=== PATIENT | female | born 1975 | race Caucasian/White ===

== ENCOUNTER 2020-04-01 18:29 | Emergency (ER) | payer MEDICAID, OTHER ==
[~2020-04-01] VITALS: Ht 175.3 cm; Wt 77.0 kg
[2020-04-01] MEDS ORDERED: SODIUM CHLORIDE FLUSH 10ML SYR IVF ONE (19:30)
[2020-04-01 19:42] LABS: BASOPHILS # (AUTO) 0.04 x10^3/uL (0-0.1); BASOPHILS % (AUTO) 0 % (0-1); EOSINOPHILS # (AUTO) 0.58 x10^3/uL (0-0.4); EOSINOPHILS % (AUTO) 6 % (1-7); LYMPHOCYTES # (AUTO) 2.58 x10^3/uL (1-3.4); LYMPHOCYTES % (AUTO) 28 % (22-44); MD NO; MEAN CORPUSCULAR HEMOGLOBIN 29.8 pg (27.0-34.8); MEAN CORPUSCULAR HGB CONC 33.3 g/dL (32.4-35.8); MEAN PLATELET VOLUME 7.3 fL (7.4-10.4); MONOCYTES % (AUTO) 8 % (2-9); NEUTROPHILS # (AUTO) 5.26 x10^3/uL (1.8-6.8); NEUTROPHILS % (AUTO) 58 % (42-75); PLATELET COUNT 357 x10^3/uL (130-400); RED BLOOD COUNT 4.92 x10^6/uL (3.82-5.3); RED CELL DISTRIBUTION WIDTH 14.6 % (9.6-15.2)
[2020-04-01 19:52] LABS: ANION GAP 6 mmol/L (5-15); CALCIUM 8.7 mg/dL (8.5-10.1); CHLORIDE 107 mmol/L (98-107)
[2020-04-01 19:55] LABS: ALANINE AMINOTRANSFERASE 75 U/L (12-78); ALKALINE PHOSPHATASE 103 U/L (45-117); BILIRUBIN,TOTAL 0.2 mg/dL (0.2-1.0); CREATININE 0.74 mg/dL (0.55-1.02); TOTAL PROTEIN 7.2 g/dL (6.4-8.2)
--- NOTE | 2020-04-01 19:59 | NUR ---
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
[2020-04-01] MEDS ORDERED: ONDANSETRON 2MG/ML, 2ML ONE (20:53)
[2020-04-01] MEDS ORDERED: FAMOTIDINE 20 MG/2 ML ONE (20:53)
[2020-04-01] MEDS ORDERED: MAALOX/HYOSCYAMINE/LIDOCAINE 45 ML BTL ONE (20:53)
[2020-04-01] MEDS ORDERED: MAALOX/HYOSCYAMINE/LIDOCAINE 45 ML BTL PO ONE (21:00)
[2020-04-01] MEDS ORDERED: ONDANSETRON 2MG/ML, 2ML IVPush ONE (21:00)
[2020-04-01] MEDS ORDERED: SODIUM CHLORIDE 0.9% 1,000ML IVBOLUS ONE (21:00)
[2020-04-01] MEDS ORDERED: FAMOTIDINE 20 MG/2 ML IV ONE (21:00)
[2020-04-01 21:20] VITALS: BP 112/75
[2020-04-01] MEDS ORDERED: PANTOPRAZOLE 40 MG IV ONE (22:17)
[2020-04-01] MEDS ORDERED: SUCRALFATE 1 GM/10 ML UDC PO ONE (22:30)
[2020-04-01] MEDS ORDERED: PANTOPRAZOLE 40 MG IV IVPush ONE (22:30)
== END 2020-04-01 22:50 | disposition home or self-care (01) ==
LOC: ED 21:38
DX: S93.601A Unspecified sprain of right foot, initial encounter (principal); K29.20 Alcoholic gastritis without bleeding; F10.10 Alcohol abuse, uncomplicated; R11.2 Nausea with vomiting, unspecified; X50.0XXA Overexertion from strenuous movement or load, initial encounter; Y93.89 Activity, other specified; Y92.89 Other specified places as the place of occurrence of the external cause; Y99.8 Other external cause status
CPT/HCPCS: 36415; 73630; 80053; 83690; 85025; 96374; 96375; 99284; C9113; J2405; J3490; J7030

== ENCOUNTER 2020-09-12 09:30 | Emergency (ER) | payer BC, OTHER ==
[~2020-09-12] VITALS: Ht 175.3 cm; Wt 82.1 kg
[2020-09-12 09:37] VITALS: BP 127/90
[2020-09-12] MEDS ORDERED: IBUPROFEN 600 MG TABLET PO ONE (10:30)
[2020-09-12] MEDS ORDERED: ACETAMINOPHEN 325 MG TABLET PO ONE (10:30)
[2020-09-12] MEDS ORDERED: IBUPROFEN 600 MG TABLET ONE (10:31)
[2020-09-12] MEDS ORDERED: ACETAMINOPHEN 325 MG TABLET ONE (10:31)
--- NOTE | 2020-09-12 10:45 | NUR ---
Patient given discharge instructions and they have confirmed that they understand the instructions. Patient ambulatory with steady gait.
== END 2020-09-12 10:46 | disposition home or self-care (01) ==
LOC: ED 10:15
DX: J02.8 Acute pharyngitis due to other specified organisms (principal); B97.89 Other viral agents as the cause of diseases classified elsewhere; Z90.89 Acquired absence of other organs
CPT/HCPCS: 87081; 87880; 99283